=== PATIENT | male | born 1970 | race Caucasian/White ===

== ENCOUNTER 2023-12-02 14:18 | Outpatient (CLI) | payer OTHER, SELFPAY ==
--- NOTE | ~2023-12-02 | XR_ITS ---
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 TECHNIQUE: PA and lateral views of the chest were obtained. COMPARISON: None FINDINGS: 3.3 x 2.4 cm mass in the right upper lung zone. Remainder of the lungs are clear. No pulmonary edema, pleural effusion or pneumothorax. The cardiomediastinal silhouette is normal. Mild lower thoracic le vocurvature with mild spondylosis. IMPRESSION: 1. 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 Recomme nd further evaluation with chest CT preferably with contrast. Reviewed, dictated and finalized at location A. IMPRESSION: 1. 3.3 x 2.4 cm mass at the right upper lung zone suspicious for primary vasoge gonzalez carcinoma. Recommend further evaluation with chest CT preferably with contr ast.
== END 2023-12-02 14:19 | disposition home or self-care (01) ==
DX: R76.11 Nonspecific reaction to tuberculin skin test without active tuberculosis (principal); R91.8 Other nonspecific abnormal finding of lung field
CPT/HCPCS: 71046